=== PATIENT | male | born 2000 | race African-American/Black ===

== ENCOUNTER 2018-01-24 14:02 | Emergency (ER) | payer OTHER | END 2018-01-24 14:59 | disposition home or self-care (01) | LOC: M ED 14:02 | DX: B36.0 Pityriasis versicolor (principal) | CPT/HCPCS: 99282 ==

== ENCOUNTER 2018-02-01 19:48 | Emergency (ER) | payer OTHER ==
[2018-02-01] MEDS: FLUCONAZOLE 100 MG TAB PO (21:51)
== END 2018-02-01 22:04 | disposition home or self-care (01) ==
LOC: M ED 19:48
DX: B36.0 Pityriasis versicolor (principal)
CPT/HCPCS: 99282

== ENCOUNTER 2018-12-13 08:18 | Emergency (ER) | payer OTHER ==
[~2018-12-13] VITALS: Ht 182.9 cm; Wt 86.4 kg
[~2018-12-13 08:18] MED LIST: FLUC10TA PO; HYDR25OIN TOP; KETO2CR EXT; PRED20TA PO
[2018-12-13 08:19] VITALS: BP 138/76
[2018-12-13] MEDS ORDERED: doesnt know meds (08:34)
[2018-12-13] MEDS ORDERED: KETOROLAC 60 MG/2 ML VIAL (J1885) IM ONE (08:45)
== END 2018-12-13 09:16 | disposition home or self-care (01) ==
LOC: M ED 08:18
DX: M25.551 Pain in right hip (principal); M25.552 Pain in left hip; G89.29 Other chronic pain
CPT/HCPCS: 96372; 99282; J1885